=== PATIENT | male | born 1990 | race Caucasian/White ===

== ENCOUNTER 2016-11-18 10:21 | Emergency (ER) | payer OTHER ==
[2016-11-18 10:15] LABS: INFLUENZA A NEG (NEG); INFLUENZA B NEG (NEG)
[~2016-11-18 10:21] MED LIST: AMOXICILLIN500 M1 PO; BENZONATATE PO; DECADRON PO; FLOVENT DI50 MCG/DIS INH; KEFLEX500 M1 PO; MOBIC PO; NO MEDICATIONS; NYQUIL D COLD295 M1 PO; PREDNISONE PO; ZOFRAN PO
== END 2016-11-18 10:27 | disposition home or self-care (01) ==
LOC: SED 10:21
PROVIDERS: Emergency Medicine
DX: J01.90 Acute sinusitis, unspecified (principal); Z88.1 Allergy status to other antibiotic agents
CPT/HCPCS: 87651; 87804; 99282